=== PATIENT | female | born 1990 | race African-American/Black ===

== ENCOUNTER 2020-05-17 22:07 | Observation (INO) | payer BC, SELFPAY ==
[2020-05-17] MEDS ORDERED: Ondansetron ODT 4 MG TAB PO PRN (22:47)
[2020-05-17] MEDS ORDERED: Zolpidem Tartrate 5 MG TAB PO PRN (22:47)
[2020-05-17] MEDS ORDERED: Senokot S 8.6-50 MG TAB PO PRN (22:47)
[2020-05-18] MEDS ORDERED: medroxyPROGESTERone Acetate 5 MG TAB PO SCH (00:45)
[2020-05-18] MEDS: Lantus 1000 UNITS/10 ML VIAL SC SCH ×3 (01:01→21:31)
[2020-05-18] MEDS: HYDROcodone/Acetaminophen 5/325 mg Tablet PO PRN ×2 (01:02→05:09)
[2020-05-18 06:17] VITALS: BMI 49.2
[2020-05-18] MEDS: Famotidine 20 MG TAB PO SCH ×2 (09:28→21:29)
[2020-05-18] MEDS: Tranexamic Acid 650 MG TAB PO SCH ×3 (09:59→21:30)
[2020-05-18] MEDS: medroxyPROGESTERone Acetate 5 MG TAB PO SCH ×3 (09:59→21:30)
[2020-05-18 10:06] LABS: #Eosinphils 0.1 10x3/uL (0.0-0.5); #Monocytes 0.6 10x3/uL (0.0-1.1); %Basophils 0.4 % (0.0-2.0); %Eosinophils 1.1 % (0.0-6.0); %Lymphocytes 32.2 % (18.0-47.0); %Monocytes 6.9 % (0.0-10.0); %Neutrophils 57.6 % (40.0-75.0); Hemoglobin 6.6 g/dL (12.0-15.5); Mean Corpuscular HGB CONC 30.6 g/dL (32.0-36.0); Mean Corpuscular Hemoglobin 19.1 pg (27.0-33.0); Mean Corpuscular Volume 62.6 fl (81.6-98.3); RBC Distribution Width 31.8 % (11.5-14.5); Red Blood Cell (RBC) Count 3.45 10x6/uL (3.90-5.03); White Blood Cell (WBC) Count 8.6 10x3/uL (3.5-10.5)
[2020-05-18 10:07] LABS: Platelet Count 360 10x3/uL (150-450)
[2020-05-18 10:08] LABS: Anisocytosis MODERATE=16-30 cells (100X) (0-5/hpf); Basophilic Stippling SLIGHT = 1-2 cells (100X) (None Seen); Elliptocytes SLIGHT = 2-5 cells (100X) (0-1/hpf); Hypochromia MODERATE=16-30 cells (100X) (0-5/hpf); Macrocytosis SLIGHT = 6-15 cells (100X) (0-5/hpf); Microcytosis MODERATE=15-30 cells (100X) (0-5/hpf); Polychromasia SLIGHT = 2-3 cells (100X) (0-2/hpf); Stomatocytes SLIGHT = 2-5 cells (100X) (0-1/hpf); Target Cells MODERATE= 6-15 cells (100X) (0-1/hpf); Tear Drops SLIGHT = 2-5 cells (100X) (0-1/hpf)
[2020-05-18 10:09] LABS: Platelet Morphology Comment Appears Adequate
[2020-05-18 11:39] LABS: Hemoglobin A1c 6.6 % (4.0-6.0)
[2020-05-18 13:43] LABS: SARS-CoV-2 PCR by NAA Not Detected (NotDetected)
[2020-05-19] MEDS: Famotidine 20 MG TAB PO SCH (10:27)
[2020-05-19] MEDS: medroxyPROGESTERone Acetate 5 MG TAB PO SCH (10:28)
[2020-05-19] MEDS: Tranexamic Acid 650 MG TAB PO SCH (10:30)
[2020-05-19] MEDS: Lantus 1000 UNITS/10 ML VIAL SC SCH (10:33)
[2020-05-19 11:13] VITALS: BP 113/63; TEMP 98.8
== END 2020-05-19 14:10 | disposition home or self-care (01) ==
LOC: CSHPP 22:07
PROVIDERS: ADMIT Obstetrics & Gynecology; ATTEND Obstetrics & Gynecology
DX: N93.9 Abnormal uterine and vaginal bleeding, unspecified (principal); D62 Acute posthemorrhagic anemia; E11.9 Type 2 diabetes mellitus without complications; I10 Essential (primary) hypertension; J45.909 Unspecified asthma, uncomplicated; E66.9 Obesity, unspecified; Z68.42 Body mass index [BMI] 45.0-49.9, adult; Z79.4 Long term (current) use of insulin; Z79.899 Other long term (current) drug therapy; Z20.822 Contact with and (suspected) exposure to COVID-19
CPT/HCPCS: 36415; 36416; 83036; 85025; 86850; 86900; 86901; 87635; 88305; G0378; J1815; P9016; U0003; U0005

== ENCOUNTER 2022-05-26 00:54 | Observation (INO) | payer BC ==
[2022-05-26] MEDS ORDERED: Ondansetron ODT 4 MG TAB PO PRN (01:22)
[2022-05-26] MEDS ORDERED: Acetaminophen 500 MG TAB PO PRN (01:22)
[2022-05-26] MEDS ORDERED: Ondansetron PF 4 MG/2 ML Vial IVP PRN (01:22)
[2022-05-26 01:39] VITALS: BMI 41.5
[2022-05-26 04:38] LABS: Mean Corpuscular HGB CONC 29.9 g/dL (32.0-36.0); Mean Corpuscular Hemoglobin 17.5 pg (27.0-33.0); Mean Corpuscular Volume 58.6 fl (81.6-98.3); Mean Platelet Volume 9.6 fl (7.4-10.4); Platelet Count 410 10x3/uL (150-450); RBC Distribution Width 22.1 % (11.5-14.5); Red Blood Cell (RBC) Count 4.57 10x6/uL (3.90-5.03); White Blood Cell (WBC) Count 8.6 10x3/uL (3.5-10.5)
[2022-05-26] MEDS ORDERED: Dextrose 50% Abboject 50 ML SYRINGE SLOW IVP PRN (07:13)
[2022-05-26] MEDS ORDERED: Dextrose 5% in Water 1,000 ML IV PRN (07:13)
[2022-05-26] MEDS ORDERED: Lantus 1000 UNITS/10 ML VIAL SC SCH ×2 (08:00→09:00)
[2022-05-26] MEDS: Insulin Regular 300 UNITS/3 ML VIAL SC PRN ×3 (09:07→16:39)
[2022-05-26 16:39] VITALS: BP 108/56; TEMP 98.5
[2022-05-27] MEDS ORDERED: Lantus 1000 UNITS/10 ML VIAL SC SCH (09:00)
== END 2022-05-26 18:07 | disposition home or self-care (01) ==
LOC: INTOOBSV 00:54 → CSHPP 00:54
PROVIDERS: ADMIT Obstetrics & Gynecology; ATTEND Obstetrics & Gynecology
DX: N93.9 Abnormal uterine and vaginal bleeding, unspecified (principal); D63.8 Anemia in other chronic diseases classified elsewhere; E11.22 Type 2 diabetes mellitus with diabetic chronic kidney disease; E66.01 Morbid (severe) obesity due to excess calories; N92.6 Irregular menstruation, unspecified; F41.9 Anxiety disorder, unspecified; F32.A Depression, unspecified; Z79.4 Long term (current) use of insulin; Z79.899 Other long term (current) drug therapy; Z68.41 Body mass index [BMI] 40.0-44.9, adult
CPT/HCPCS: 36416; 76856; 85027; G0378; J1815